=== PATIENT | female | born 1995 | race African-American/Black ===

== ENCOUNTER 2016-07-27 11:33 | Emergency (ER) | payer OTHER ==
[~2016-07-27] VITALS: Ht 157.5 cm; Wt 54.0 kg
[2016-07-27] MEDS ORDERED: IBUPROFEN 800MG TABLET PO ONE (13:30)
[2016-07-27] MEDS ORDERED: ONDANSETRON 4MG ODT PO ONE (13:30)
[2016-07-27 13:38] VITALS: BP 119/77
== END 2016-07-27 13:54 | disposition home or self-care (01) ==
LOC: ER 12:16
DX: R11.2 Nausea with vomiting, unspecified (principal); F17.210 Nicotine dependence, cigarettes, uncomplicated; F12.90 Cannabis use, unspecified, uncomplicated
CPT/HCPCS: 81025; 99283; Q0162

== ENCOUNTER 2017-03-25 10:18 | Emergency (ER) | payer MEDICAID, OTHER ==
[~2017-03-25] VITALS: Ht 157.5 cm; Wt 54.0 kg
[2017-03-25 13:15] VITALS: BP 123/81
[2017-03-25] MEDS ORDERED: KETOROLAC 30MG/ML VIAL IM ONE (13:15)
== END 2017-03-25 13:58 | disposition home or self-care (01) ==
LOC: ER 12:38
DX: M77.12 Lateral epicondylitis, left elbow (principal); F17.200 Nicotine dependence, unspecified, uncomplicated; F12.10 Cannabis abuse, uncomplicated
CPT/HCPCS: 81025; 96372; 99283; J1885

== ENCOUNTER 2017-11-16 07:43 | Emergency (ER) | payer MEDICAID ==
[~2017-11-16] VITALS: Ht 160 cm; Wt 53.4 kg
[2017-11-16 09:06] LABS: CLARITY URINE CLOUDY (CLEAR); KETONES URINE NEGATIVE (NEGATIVE); LEUKOCYTE ESTERASE URINE 2+ (NEGATIVE); NITRITE URINE NEGATIVE (NEGATIVE); OCCULT BLOOD URINE NEGATIVE (NEGATIVE); PROTEIN URINE NEGATIVE (NEGATIVE); SPECIFIC GRAVITY URINE 1.018 (1.005-1.030); UROBILINOGEN URINE 0.2 E.U./dL (0.2-1.0)
[2017-11-16 09:09] LABS: COLOR URINE PALE YELLOW (YELLOW)
[2017-11-16 09:46] LABS: BASOPHILS % 0.5 % (0.0-2.0); EOSINOPHILS % 1.1 % (0.0-5.0); HEMATOCRIT. 34.1 % (36.0-48.0); LYMPHOCYTES % 42.9 % (20.0-50.0); MEAN CORPUSCULAR HEMOGLOBIN 28.6 pg (28.0-32.0); MEAN CORPUSCULAR VOLUME 81.4 fL (81.0-99.0); MEAN PLATELET VOLUME 7.2 fl (7.4-10.4); MONOCYTES % 8.8 % (2.0-8.0); NEUTROPHILS % 46.7 % (40.0-76.0); PLATELET 268 x1000/uL (130-400); RED BLOOD CELL COUNT 4.19 mill/uL (4.2-5.4); RED CELL DISTRIBUTION WIDTH 13.1 % (11.6-14.6)
[2017-11-16 09:52] LABS: CHLORIDE 108 mEq/L (98-107)
[2017-11-16 13:28] VITALS: BP 113/68
== END 2017-11-16 13:29 | disposition home or self-care (01) ==
LOC: ER 07:43
DX: O23.41 Unspecified infection of urinary tract in pregnancy, first trimester (principal); O99.331 Smoking (tobacco) complicating pregnancy, first trimester; O99.321 Drug use complicating pregnancy, first trimester; O34.81 Maternal care for other abnormalities of pelvic organs, first trimester; N83.12 Corpus luteum cyst of left ovary; F12.90 Cannabis use, unspecified, uncomplicated; Z3A.00 Weeks of gestation of pregnancy not specified
CPT/HCPCS: 36415; 76801; 76817; 80048; 81003; 81025; 84702; 85025; 87077; 87086; 99285; Z7610

== ENCOUNTER 2018-08-23 16:18 | Emergency (ER) | payer MEDICAID ==
[~2018-08-23] VITALS: Ht 157.5 cm; Wt 57.0 kg
[2018-08-23] MEDS ORDERED: ACETAMINOPHEN 325MG TABLET PO ONE ×2 (19:45→20:00)
[2018-08-23] MEDS ORDERED: ACETAMINOPHEN 650MG/20.3ML UDC PO ONE (20:00)
[2018-08-23 20:54] VITALS: BP 116/80
== END 2018-08-23 20:55 | disposition home or self-care (01) ==
LOC: ER 16:18
DX: S93.401A Sprain of unspecified ligament of right ankle, initial encounter (principal); F12.10 Cannabis abuse, uncomplicated; F17.210 Nicotine dependence, cigarettes, uncomplicated; X50.1XXA Overexertion from prolonged static or awkward postures, initial encounter; Y93.89 Activity, other specified; Y92.018 Other place in single-family (private) house as the place of occurrence of the external cause
CPT/HCPCS: 73610; 81025; 99283

== ENCOUNTER 2019-02-07 12:12 | Emergency (ER) | payer MEDICAID, OTHER ==
[~2019-02-07] VITALS: Ht 167.6 cm; Wt 55.0 kg
[2019-02-07] MEDS ORDERED: ACETAMINOPHEN 325MG TABLET PO PRN (15:00)
[2019-02-07 15:23] LABS: CLARITY URINE TURBID (CLEAR); COLOR URINE YELLOW (YELLOW); KETONES URINE TRACE (NEGATIVE); LEUKOCYTE ESTERASE URINE NEGATIVE (NEGATIVE); NITRITE URINE NEGATIVE (NEGATIVE); OCCULT BLOOD URINE NEGATIVE (NEGATIVE); PH URINE >=9.0 (4.5-8.0); PROTEIN URINE 1+ (NEGATIVE); SPECIFIC GRAVITY URINE 1.025 (1.005-1.030); UROBILINOGEN URINE 0.2 E.U./dL (0.2-1.0)
[2019-02-07 15:29] LABS: CHLORIDE 102 mEq/L (98-107)
[2019-02-07 15:32] LABS: BASOPHILS % 0.7 % (0.0-2.0); EOSINOPHILS % 0.3 % (0.0-5.0); HEMATOCRIT. 33.8 % (36.0-48.0); HEMOGLOBIN. 11.8 g/dL (12.0-16.0); LYMPHOCYTES % 22.7 % (20.0-50.0); MEAN CORPUSCULAR HEMOGLOBIN 28.1 pg (28.0-32.0); MEAN CORPUSCULAR VOLUME 80.6 fL (81.0-99.0); MEAN PLATELET VOLUME 6.9 fl (7.4-10.4); MONOCYTES % 7.3 % (2.0-8.0); PLATELET 306 x1000/uL (130-400); RED BLOOD CELL COUNT 4.19 mill/uL (4.2-5.4); RED CELL DISTRIBUTION WIDTH 13.9 % (11.6-14.6)
[2019-02-07 15:53] LABS: B-HCG QUANTITATIVE 108419 mIU/mL (<3)
[2019-02-07 16:53] VITALS: BP 114/74
== END 2019-02-07 16:55 | disposition home or self-care (01) ==
LOC: ER 12:12
DX: O02.1 Missed abortion (principal); N83.201 Unspecified ovarian cyst, right side; D28.7 Benign neoplasm of other specified female genital organs
CPT/HCPCS: 36415; 76801; 81003; 81025; 84702; 86850; 86900; 93005; 99284

== ENCOUNTER 2019-03-20 12:06 | Emergency (ER) | payer OTHER ==
[~2019-03-20] VITALS: Ht 157.5 cm; Wt 55.0 kg
[2019-03-20] MEDS ORDERED: ONDANSETRON 4MG ODT PO ONE (17:15)
[2019-03-20 17:18] VITALS: BP 120/90
== END 2019-03-20 17:40 | disposition home or self-care (01) ==
LOC: ER 12:06
DX: K52.9 Noninfective gastroenteritis and colitis, unspecified (principal); F12.10 Cannabis abuse, uncomplicated; F17.290 Nicotine dependence, other tobacco product, uncomplicated; Z53.21 Procedure and treatment not carried out due to patient leaving prior to being seen by health care provider
CPT/HCPCS: 99283; 99406; Q0162

== ENCOUNTER 2019-11-28 20:14 | Emergency (ER) | payer OTHER ==
[~2019-11-28] VITALS: Ht 157.5 cm; Wt 54.0 kg
[2019-11-28] MEDS ORDERED: ACETAMINOPHEN 325MG TABLET PO PRN (22:00)
[2019-11-28] MEDS ORDERED: ONDANSETRON 4MG ODT PO ONE (22:00)
[2019-11-28 23:05] LABS: CLARITY URINE CLEAR (CLEAR); COLOR URINE DARK YELLOW (YELLOW); KETONES URINE 4+ (NEGATIVE); LEUKOCYTE ESTERASE URINE TRACE (NEGATIVE); NITRITE URINE NEGATIVE (NEGATIVE); OCCULT BLOOD URINE NEGATIVE (NEGATIVE); PROTEIN URINE 2+ (NEGATIVE); SPECIFIC GRAVITY URINE 1.037 (1.005-1.030)
[2019-11-28 23:35] LABS: BASOPHILS % 0.5 % (0.0-2.0); EOSINOPHILS % 0.4 % (0.0-5.0); HEMATOCRIT. 38.1 % (36.0-48.0); HEMOGLOBIN. 13.5 g/dL (12.0-16.0); LYMPHOCYTES % 20.9 % (20.0-50.0); MEAN CORPUSCULAR HEMOGLOBIN 28.5 pg (28.0-32.0); MEAN CORPUSCULAR VOLUME 80.4 fL (81.0-99.0); MONOCYTES % 9.8 % (2.0-8.0); NEUTROPHILS % 68.4 % (40.0-76.0); PLATELET 354 x1000/uL (130-400); RED BLOOD CELL COUNT 4.74 mill/uL (4.2-5.4)
[2019-11-28 23:51] LABS: CHLORIDE 99 mEq/L (98-107)
[2019-11-29 00:15] LABS: B-HCG QUANTITATIVE 85078 mIU/mL (<3)
[2019-11-29] MEDS ORDERED: ONDANSETRON 4MG ODT PO ONE (01:00)
[2019-11-29 02:07] VITALS: BP 125/85
== END 2019-11-29 02:11 | disposition home or self-care (01) ==
LOC: ER 20:14
DX: O21.8 Other vomiting complicating pregnancy (principal); O23.31 Infections of other parts of urinary tract in pregnancy, first trimester; Z3A.01 Less than 8 weeks gestation of pregnancy; F12.10 Cannabis abuse, uncomplicated
CPT/HCPCS: 36415; 76801; 76817; 80053; 81003; 81025; 84702; 85025; 86850; 86900; 86901; 99284; Q0162

== ENCOUNTER 2020-08-07 12:41 | Emergency (ER) | payer OTHER ==
[~2020-08-07] VITALS: Ht 165.1 cm; Wt 63.0 kg
[2020-08-07 14:25] LABS: CLARITY URINE CLOUDY (CLEAR); COLOR URINE YELLOW (YELLOW); KETONES URINE NEGATIVE (NEGATIVE); LEUKOCYTE ESTERASE URINE 1+ (NEGATIVE); NITRITE URINE NEGATIVE (NEGATIVE); OCCULT BLOOD URINE NEGATIVE (NEGATIVE); PH URINE 7.5 (4.5-8.0); PROTEIN URINE NEGATIVE (NEGATIVE); SPECIFIC GRAVITY URINE 1.023 (1.005-1.030)
[2020-08-07 14:28] LABS: BASOPHILS % 0.5 % (0.0-2.0); EOSINOPHILS % 0.5 % (0.0-5.0); HEMATOCRIT. 31.8 % (36.0-48.0); HEMOGLOBIN. 11.1 g/dL (12.0-16.0); LYMPHOCYTES % 26.3 % (20.0-50.0); MEAN CORPUSCULAR HEMOGLOBIN 29.4 pg (28.0-32.0); MEAN CORPUSCULAR VOLUME 83.8 fL (81.0-99.0); MEAN PLATELET VOLUME 7.1 fl (7.4-10.4); NEUTROPHILS % 65.7 % (40.0-76.0); PLATELET 290 x1000/uL (130-400); RED BLOOD CELL COUNT 3.79 mill/uL (4.2-5.4); RED CELL DISTRIBUTION WIDTH 13.6 % (11.6-14.6)
[2020-08-07 14:30] LABS: CHLORIDE 106 mEq/L (98-107)
[2020-08-07 14:34] LABS: INR 0.9; PROTHROMBIN TIME 10.1 sec (9.6-11.0)
[2020-08-07 14:54] LABS: B-HCG QUANTITATIVE 9131 mIU/mL (<3)
[2020-08-07 17:23] VITALS: BP 116/70
== END 2020-08-07 17:28 | disposition home or self-care (01) ==
LOC: ER 12:41
DX: O71.9 Obstetric trauma, unspecified (principal); O26.92 Pregnancy related conditions, unspecified, second trimester; F12.10 Cannabis abuse, uncomplicated; Z3A.16 16 weeks gestation of pregnancy
CPT/HCPCS: 36415; 76805; 80053; 81003; 84702; 85025; 86900; 99284

== ENCOUNTER 2022-01-14 17:45 | Emergency (ER) | payer MEDICAID, OTHER ==
[~2022-01-14] VITALS: Ht 157.5 cm; Wt 54.0 kg
[2022-01-14 18:55] VITALS: BP 124/77
[2022-01-14] MEDS ORDERED: KETOROLAC 60MG/2ML VIAL IM ONE (21:00)
[2022-01-14] MEDS ORDERED: IBUP-2029 MT (22:30)
[2022-01-14] MEDS ORDERED: LIDO700A30 TP (22:30)
[2022-01-16] MEDS ORDERED: LIDO700A15 TP (14:15)
[2022-01-16] MEDS ORDERED: IBUP-2029 MT (14:15)
== END 2022-01-14 22:38 | disposition home or self-care (01) ==
LOC: ER 17:45
DX: M25.562 Pain in left knee (principal); F12.10 Cannabis abuse, uncomplicated; V49.9XXA Car occupant (driver) (passenger) injured in unspecified traffic accident, initial encounter; Y93.89 Activity, other specified; Y92.89 Other specified places as the place of occurrence of the external cause; Y99.8 Other external cause status
CPT/HCPCS: 71045; 72100; 73080; 73562; 81025; 96372; 99284; J1885